=== PATIENT | male | born 1970 | race Caucasian/White ===

== ENCOUNTER → 2020-08-14 10:57 | Outpatient (BNVA) | payer OTHER, SELFPAY | PROVIDERS: PCP Nurse Practitioner Family; Visit Provider Urology | DX: Z76.89 Persons encountering health services in other specified circumstances (principal) | CPT/HCPCS: 99212 ==

== ENCOUNTER 2020-08-15 10:29 | Outpatient (REF) | payer OTHER, SELFPAY ==
[2020-08-16 10:31] LABS: Follicle Stimulating Hormone 1.2 mIU/mL (1.6-8.0); Lutenizing Hormone 1.2 mIU/mL (1.5-9.3)
[2020-08-17 17:21] LABS: Sex Hormone Binding Globulin 62 nmol/L (10-50)
[2020-08-20 12:27] LABS: Testosterone, Total 50 ng/dL (250-1100)
[2020-08-20 19:17] LABS: Estradiol Ultra Sensitive 6 pg/mL (< OR = 29)
== END 2020-08-15 10:30 | disposition home or self-care (01) ==
LOC: HO.LAB 10:29
PROVIDERS: PCP Nurse Practitioner Family; Visit Provider Urology
DX: E29.1 Testicular hypofunction (principal)
CPT/HCPCS: 82670; 83001; 83002; 84270; 84402; 84403

== ENCOUNTER 2020-09-02 09:45 | Outpatient (REF) | payer OTHER, SELFPAY ==
[2020-09-10 16:22] LABS: Testosterone, Free 2.8 pg/mL (35.0-155.0); Testosterone, Total 32 ng/dL (250-1100)
== END 2020-09-02 09:46 | disposition home or self-care (01) ==
LOC: HO.LAB 09:45
PROVIDERS: PCP Nurse Practitioner Family; Visit Provider Urology
DX: E29.1 Testicular hypofunction (principal)
CPT/HCPCS: 84402; 84403

== ENCOUNTER → 2020-09-11 14:22 | Outpatient (BNVA) | payer OTHER, SELFPAY | PROVIDERS: PCP Nurse Practitioner Family; Visit Provider Urology | DX: E29.1 Testicular hypofunction (principal); E11.69 Type 2 diabetes mellitus with other specified complication; N52.1 Erectile dysfunction due to diseases classified elsewhere | CPT/HCPCS: 99212 ==

== ENCOUNTER → 2020-09-15 11:15 | Outpatient (BNVA) | payer OTHER, SELFPAY | PROVIDERS: PCP Nurse Practitioner Family; Visit Provider Urology | DX: Z76.89 Persons encountering health services in other specified circumstances (principal) | CPT/HCPCS: 99212 ==

== ENCOUNTER 2020-09-21 08:08 | Outpatient (RCR) | payer OTHER, SELFPAY | END 2021-02-16 13:25 | disposition home or self-care (01) | LOC: HO.WCC 08:08 | PROVIDERS: PCP Nurse Practitioner Family; Visit Provider Physician Assistant | DX: E11.621 Type 2 diabetes mellitus with foot ulcer (principal); L97.515 Non-pressure chronic ulcer of other part of right foot with muscle involvement without evidence of necrosis; L97.516 Non-pressure chronic ulcer of other part of right foot with bone involvement without evidence of necrosis; E11.69 Type 2 diabetes mellitus with other specified complication; E11.43 Type 2 diabetes mellitus with diabetic autonomic (poly)neuropathy; M86.9 Osteomyelitis, unspecified; L08.9 Local infection of the skin and subcutaneous tissue, unspecified; R60.0 Localized edema; F17.210 Nicotine dependence, cigarettes, uncomplicated; Z79.2 Long term (current) use of antibiotics | CPT/HCPCS: 11042; 11043; 11044; 87071; 87077; 87147; 87186; 87205; 88304; 88305; 88311; 97597; 99183; 99212; 99213 ==

== ENCOUNTER 2020-10-12 15:51 | Outpatient (REF) | payer OTHER, SELFPAY ==
[2020-10-12 17:00] LABS: MANUAL DIFF FLAG NO
[2020-10-12 17:05] LABS: Basophils Absolute Auto 0.1 X10*3/uL (0.0-0.2); Basophils Percent Auto 0.6 % (0-2); Eosinophils Absolute Auto 0.3 X10*3/uL (0.0-0.4); Eosinophils Percent Auto 2.3 % (0-4); Hematocrit 35.4 % (42-52); Hemoglobin 11.2 g/dl (14.0-18.0); Imm Gran Abs Auto 0.04 X10*3/uL (0.00-0.03); Imm Gran Pct Auto 0.4 % (0.0-0.4); Lymphocytes Absolute Auto 2.1 X10*3/uL (1.2-4.9); Lymphocytes Percent Auto 19.3 % (20-40); Mean Corpuscular HGB Conc 31.6 g/dl (31.0-36.0); Mean Corpuscular Hemoglobin 30.2 pg (27.0-33.0); Mean Corpuscular Volume 95.4 fL (80-98); Mean Platelet Volume 9.8 fL (9.4-12.4); Monocytes Absolute Auto 0.6 X10*3/uL (0.1-1.2); Monocytes Percent Auto 5.8 % (2-11); Neutrophils Absolute Auto 7.7 X10*3/uL (2.0-8.3); Neutrophils Percent Auto 71.6 % (45-73); Platelet Count 436 X10*3/uL (160-400); Red Blood Count 3.71 X10*6/uL (4.60-5.80); Red Cell Distribution Width 12.3 % (11.0-16.0); White Blood Count 10.8 X10*3/uL (4.8-10.8)
[2020-10-12 17:13] LABS: Estimated Average Glucose 160 mg/dL; Hemoglobin A1c % 7.2 %
[2020-10-12 17:31] LABS: Alanine Aminotransferase 15 U/L (0-40); Albumin Level 3.9 g/dL (3.5-5.0); Alkaline Phosphatase 112 U/L (39-117); Anion Gap 16 (12-20); Aspartate Amino Transferase 13 U/L (5-37); Bilirubin Total 0.4 mg/dL (0.0-1.0); Blood Urea Nitrogen 20 mg/dL (9-16); C Reactive Protein 11.24 mg/dL (< or = 0.50); Calcium 8.9 mg/dL (8.4-10.2); Carbon Dioxide 31 mmol/L (22-29); Chloride 98 mmol/L (96-108); Estimated Glomerular Filt Rate > 60; Glucose Random 158 mg/dL (60-115); Potassium 5.7 mmol/l (3.3-5.1); Sodium 139 mmol/L (135-145); Total Protein 6.9 g/dL (6.5-8.0)
[2020-10-13 12:34] LABS: Erythrocyte Sedimentation Rate 86 MM/HR (0-15)
[2020-10-13 22:14] LABS: Rubella IgG Antibody <0.90 Index
== END 2020-10-12 15:52 | disposition home or self-care (01) ==
LOC: HO.LAB 15:51
PROVIDERS: Absent Provider Urology; PCP Nurse Practitioner Family; Visit Provider Physician Assistant
DX: E11.622 Type 2 diabetes mellitus with other skin ulcer (principal); L98.499 Non-pressure chronic ulcer of skin of other sites with unspecified severity
CPT/HCPCS: 36415; 80053; 83036; 84134; 85025; 85652; 86140; 86762

== ENCOUNTER 2020-10-14 12:44 | Outpatient (REF) | payer OTHER, SELFPAY ==
--- NOTE | 2020-10-14 12:51 | XR_ITS ---
EXAMINATION: XR TOES, RIGHT CLINICAL INFORMATION: Diabetic foot wound. Evaluate for osteomyelitis COMPARISON: None TECHNIQUE: Frontal view of the right. 2 views of the right great toe. FINDINGS: There is a partially opaque dressing overlying the medial aspect of the great toe. There is soft tissue swelling. There is rarefaction and loss of the cortical margin at the medial aspect of the distal 1st phalanx. There is deformity and remodeling of the distal phalanx of the great toe. There is a wound. Difficult to determine if there is soft tissue gas. There is a fracture through the distal aspect of the 1st proximal phalanx. XR/XR toe RT min 2V IMPRESSION: The study is limited by overlying partially opaque dressing which obscures detail. There is a fracture and there is cortical loss and rarefaction. These findings suggest the presence of pathologic fracture with secondary osteomyelitis. Soft tissue swelling.
== END 2020-10-14 12:45 | disposition home or self-care (01) ==
LOC: HO.XRAY 12:44
PROVIDERS: PCP Nurse Practitioner Family; Visit Provider Physician Assistant
DX: E11.621 Type 2 diabetes mellitus with foot ulcer (principal); L97.519 Non-pressure chronic ulcer of other part of right foot with unspecified severity
CPT/HCPCS: 73660

== ENCOUNTER → 2020-10-26 11:19 | Outpatient (BNVA) | payer OTHER, SELFPAY | PROVIDERS: PCP Nurse Practitioner Family; Visit Provider Internal Medicine | DX: M86.9 Osteomyelitis, unspecified (principal) | CPT/HCPCS: 99202 ==

== ENCOUNTER 2020-10-29 10:50 | Outpatient (REF) | payer OTHER, SELFPAY ==
--- NOTE | 2020-10-29 10:57 | XR_ITS ---
EXAMINATION: XR CHEST CLINICAL INFORMATION: Preprocedure. COMPARISON: None TECHNIQUE: 2 views of the chest were obtained. FINDINGS: The lungs are hyperinflated but clear of acute process. The heart size and pulmonary vascularity is normal. No gross bony abnormality seen. XR/XR chest 2V IMPRESSION: Hyperinflated lungs without acute process.
== END 2020-10-29 10:51 | disposition home or self-care (01) ==
LOC: HO.XRAY 10:50
PROVIDERS: PCP Nurse Practitioner Family; Visit Provider Physician Assistant
DX: Z01.818 Encounter for other preprocedural examination (principal)
CPT/HCPCS: 71046

== ENCOUNTER 2020-11-02 12:33 | Outpatient (REF) | payer OTHER, SELFPAY ==
[2020-11-02 13:23] LABS: Anion Gap 13 (12-20); Blood Urea Nitrogen 15 mg/dL (9-16); Calcium 9.1 mg/dL (8.4-10.2); Carbon Dioxide 30 mmol/L (22-29); Chloride 99 mmol/L (96-108); Estimated Glomerular Filt Rate > 60; Glucose Random 226 mg/dL (60-115); Potassium 5.1 mmol/l (3.3-5.1); Sodium 137 mmol/L (135-145)
[2020-11-07 13:02] LABS: Testosterone, Total 177 ng/dL (250-1100)
== END 2020-11-02 12:34 | disposition home or self-care (01) ==
LOC: HO.LAB 12:33
PROVIDERS: Absent Provider Urology; PCP Nurse Practitioner Family; Visit Provider Physician Assistant
DX: E29.1 Testicular hypofunction (principal)
CPT/HCPCS: 80048; 84403

== ENCOUNTER 2020-11-05 08:39 | Outpatient (REF) | payer OTHER, SELFPAY ==
--- NOTE | 2020-11-05 10:18 | P.PICC_ITS ---
[facility] Diagnosis: TOE OSTEOMYELITIS Indication: USP IV ANTIBIOTIC TREATMENT Pertinent Labs: REVIEWED Technique: Following informed consent including risks, benefits and alternatives and using sterile technique including cap and mask, sterile gown, glove and drape, the LEFT arm was prepped and draped in the usual sterile fashion of full barrier technique with CHG. Following completion of [place] Protocol the skin and soft tissues were anesthetized with 1% Lidocaine plain. Using ultrasound guidance, LEFT BRACHIAL vein access was obtained IN SINGLE ATTEMPT BY THIS RN. Over an 0.018 wire through peel-away sheath, a 4 GUATEMALAN SINGLE LUMEN PASV PICC line was positioned. Catheter length is 45 CM internal length, 0 CM external length, for a total trimmed length of 45 CM. The procedure was performed in SPECIAL PROCEDURES ROOM 7. Tip verification was performed by Zoey Glasgow with [employer]. Tip located in SVC. Ultrasound was used to document vein patency and for needle entry. A formal ultrasound picture and cardiac rhythm strip was recorded. [employer] has released the line for use and it is currently dressed with a StatLock, Tegaderm, and CHG disc. Verification has been performed for blood return and line patency. Arm Circumference: 28 CM Equipment: [employer] POWER PICC SOLO Catheter Type: 4 GUATEMALAN SINGLE LUMEN PASV PICC Lot #: [id number]
== END 2020-11-05 08:40 | disposition home or self-care (01) ==
LOC: HO.RADIR 08:39
PROVIDERS: Visit Provider Internal Medicine
DX: M86.171 Other acute osteomyelitis, right ankle and foot (principal)
CPT/HCPCS: 36573; 96365; 96366; C1751

== ENCOUNTER 2020-11-12 11:46 | Outpatient (REF) | payer OTHER, SELFPAY ==
[2020-11-12 11:49] LABS: MANUAL DIFF FLAG NO
[2020-11-12 11:54] LABS: Basophils Absolute Auto 0.1 X10*3/uL (0.0-0.2); Basophils Percent Auto 1.1 % (0-2); Eosinophils Absolute Auto 0.3 X10*3/uL (0.0-0.4); Eosinophils Percent Auto 3.5 % (0-4); Hematocrit 33.9 % (42-52); Hemoglobin 10.9 g/dl (14.0-18.0); Imm Gran Abs Auto 0.02 X10*3/uL (0.00-0.03); Imm Gran Pct Auto 0.2 % (0.0-0.4); Lymphocytes Absolute Auto 2.4 X10*3/uL (1.2-4.9); Lymphocytes Percent Auto 26.3 % (20-40); Mean Corpuscular HGB Conc 32.2 g/dl (31.0-36.0); Mean Corpuscular Hemoglobin 29.7 pg (27.0-33.0); Mean Corpuscular Volume 92.4 fL (80-98); Mean Platelet Volume 10.2 fL (9.4-12.4); Monocytes Absolute Auto 0.7 X10*3/uL (0.1-1.2); Monocytes Percent Auto 7.2 % (2-11); Neutrophils Absolute Auto 5.6 X10*3/uL (2.0-8.3); Neutrophils Percent Auto 61.7 % (45-73); Platelet Count 334 X10*3/uL (160-400); Red Blood Count 3.67 X10*6/uL (4.60-5.80); Red Cell Distribution Width 12.7 % (11.0-16.0)
[2020-11-12 12:35] LABS: Blood Urea Nitrogen 13 mg/dL (9-16); Estimated Glomerular Filt Rate > 60
== END 2020-11-12 11:47 | disposition home or self-care (01) ==
LOC: HO.LNP 11:46
PROVIDERS: Visit Provider Internal Medicine
DX: M86.9 Osteomyelitis, unspecified (principal)
CPT/HCPCS: 82565; 84520; 85025

== ENCOUNTER 2020-11-13 09:52 | Outpatient (REF) | payer OTHER, SELFPAY ==
[2020-11-13 10:44] LABS: Vancomycin Trough 4.6 mcg/mL (10.0-20.0)
== END 2020-11-13 09:53 | disposition home or self-care (01) ==
LOC: HO.LNP 09:52
PROVIDERS: Visit Provider Internal Medicine
DX: M86.9 Osteomyelitis, unspecified (principal)
CPT/HCPCS: 80202

== ENCOUNTER → 2020-11-17 14:27 | Outpatient (BNVA) | payer OTHER, SELFPAY | PROVIDERS: PCP Nurse Practitioner Family; Visit Provider Internal Medicine | DX: M86.9 Osteomyelitis, unspecified (principal) | CPT/HCPCS: 99212 ==

== ENCOUNTER → 2020-11-18 08:41 | Outpatient (BNVA) | payer OTHER, SELFPAY | PROVIDERS: Visit Provider Urology | DX: Z76.89 Persons encountering health services in other specified circumstances (principal) ==

== ENCOUNTER → 2020-12-04 13:43 | Outpatient (BNVA) | payer OTHER, SELFPAY | PROVIDERS: PCP Nurse Practitioner Family; Visit Provider Internal Medicine | DX: Z13.89 Encounter for screening for other disorder (principal) | CPT/HCPCS: 99212 ==

== ENCOUNTER 2020-12-09 12:10 | Outpatient (REF) | payer OTHER, SELFPAY ==
[2020-12-09 14:39] LABS: Vancomycin Trough 10.7 mcg/mL (10.0-20.0)
[2020-12-09 14:48] LABS: Estimated Glomerular Filt Rate > 60
== END 2020-12-09 12:11 | disposition home or self-care (01) ==
LOC: HO.LAB 12:10
PROVIDERS: PCP Nurse Practitioner Family; Visit Provider Internal Medicine
DX: M86.9 Osteomyelitis, unspecified (principal)
CPT/HCPCS: 36415; 80202; 82565

== ENCOUNTER → 2020-12-18 11:27 | Outpatient (BNVA) | payer OTHER, SELFPAY | PROVIDERS: PCP Nurse Practitioner Family; Visit Provider Internal Medicine | DX: M86.9 Osteomyelitis, unspecified (principal) | CPT/HCPCS: 99212 ==

== ENCOUNTER 2021-01-05 10:42 | Outpatient (REF) | payer OTHER, SELFPAY ==
--- NOTE | ~2021-01-05 | XR_ITS ---
EXAMINATION: XR FOOT, RIGHT CLINICAL INFORMATION: Ulcer. Evaluate for osteomyelitis. COMPARISON: Previous x-ray October 2020 TECHNIQUE: AP, lateral, and oblique views of the right foot. FINDINGS: There is bone loss of the proximal and distal phalanges of the great toe at the IP joint, increased sclerosis and erosive changes suggestive of septic arthritis and osteomyelitis. There is a new fracture of the base of the proximal phalanx intra-articular with the MTP joint. This is worrisome for pathologic fracture and infection as well. There is overlying soft tissue swelling. No radiopaque soft tissue foreign body is seen. There is evidence of old healed fracture of the distal shaft of the third metatarsal bone. No acute fracture is seen. XR/XR foot RT min 3V IMPRESSION: Increasing of bone loss at the IP joint of the great toe suggestive of septic arthritis and osteomyelitis. New fracture of the base of the proximal phalanx of the great toe intra-articular with the MTP joint worrisome for pathologic fracture secondary to infection.
== END 2021-01-05 10:43 | disposition home or self-care (01) ==
LOC: HO.XRAY 10:42
PROVIDERS: PCP Nurse Practitioner Family; Visit Provider Physician Assistant
DX: L98.499 Non-pressure chronic ulcer of skin of other sites with unspecified severity (principal)
CPT/HCPCS: 73630

== ENCOUNTER → 2021-01-08 09:24 | Outpatient (BNVA) | payer OTHER, SELFPAY | PROVIDERS: PCP Nurse Practitioner Family; Visit Provider Internal Medicine | DX: M86.9 Osteomyelitis, unspecified (principal) | CPT/HCPCS: 99212 ==

== ENCOUNTER → 2021-03-01 13:23 | Outpatient (BNVA) | payer OTHER, SELFPAY | PROVIDERS: Visit Provider Internal Medicine | DX: M86.9 Osteomyelitis, unspecified (principal) | CPT/HCPCS: 99212 ==